=== PATIENT | female | born 1995 | race Hispanic/Latino ===

== ENCOUNTER 2018-02-04 23:21 | Emergency (ER) | payer MEDICAID ==
[2018-02-04 23:21] VITALS: BMI 29.6
[2018-02-05 00:09] LABS: SQUAMOUS EPITHIAL 2 /hpf (0-5); URINE BACTERIA RARE (<OCC); URINE BILIRUBIN NEGATIVE (NEGATIVE); URINE BLOOD NEGATIVE (NEGATIVE); URINE CLARITY Clear (Clear); URINE COLOR Yellow (YELLOW); URINE GLUCOSE (UA) NORMAL (Normal); URINE LEUKOCYTE ESTERASE TRACE Leu/uL (Negative); URINE PROTEIN NEGATIVE (NEGATIVE); URINE UROBILINOGEN NORMAL mg/dL (0.2-1.0)
[2018-02-05 00:29] LABS: ALB/GLOB RATIO 1.2 (1.0-2.1); ALBUMIN 3.5 g/dL (3.5-5.0); ALT/SGPT 17 U/L (9-52); AST/SGOT 13 U/L (14-36); BLOOD UREA NITROGEN 6 mg/dL (7-17); CALCIUM 8.5 mg/dl (8.6-10.4); GFR NON-AFRICAN AMERICAN > 60
[2018-02-05 00:32] LABS: BASO # 0.1 K/uL (0.0-0.2); BASO % 0.6 % (0.0-2.0); EOS # 0.2 K/uL (0.0-0.7); EOS % 2.2 % (0.0-4.0); LYMPH # 2.2 K/uL (1.0-4.3); LYMPH % 25.5 % (20.0-40.0); MEAN CELL VOLUME 85.1 fL (81.0-99.0); MEAN CORPUSCULAR HEMOGLOBIN 30.2 pg (27.0-31.0); MEAN CORPUSCULAR HGB CONC 35.6 g/dL (33.0-37.0); MEAN PLATELET VOLUME 9.2 fL (7.2-11.7); MONO # 0.6 K/uL (0.0-0.8); MONO % 6.8 % (0.0-10.0); NEUT # 5.5 K/uL (1.8-7.0); NEUT % 64.9 % (50.0-75.0); RBC 3.98 Mil/uL (3.80-5.20); RED CELL DISTRIBUTION WIDTH 13.9 % (11.5-14.5); WHITE BLOOD COUNT 8.5 K/uL (4.8-10.8)
--- NOTE | 2018-02-05 00:35 | C.PDOC ---
History Of Present Illness 22 y/o F p/w vaginal bleeding today, spotting mostly. Denies pain. Reports normal nausea and vomiting or . Time Seen by Provider: 02/04/18 23:33 Chief Complaint (Nursing): Female Genitourinary Past Medical History Vital Signs: Last Vital Signs Temp 98.6 F 02/04/18 23:27 Pulse 75 02/04/18 23:27 Resp 20 02/04/18 23:27 BP 116/74 02/04/18 23:27 Pulse Ox 100 02/04/18 23:27 - [facility] Procedures DELIVERY OF PRODUCTS OF CONCEPTION, EXTERNAL APPROACH (04/09/16) DRAINAGE OF AMNIOTIC FL, THERAP FROM POC, VIA OPENING (04/09/16) REPAIR PERINEUM SKIN, EXTERNAL APPROACH (04/09/16) Family History: States: Unknown Family Hx - Social History Hx Alcohol Use: No Hx Substance Use: No - Immunization History Hx Tetanus Toxoid Vaccination: No Hx Influenza Vaccination: No Hx Pneumococcal Vaccination: No Review Of Systems Except As Marked, All Systems Reviewed And Found Negative. Constitutional: Negative for: Fever Respiratory: Negative for: Shortness of Breath Physical Exam - Physical Exam Additional Physical Exam Comments: Constitutional: No acute distress. Head: Normocephalic. Atraumatic. Eyes: PERRL. ENT: Moist mucous membranes. Neck: Supple. Cardiovascular: Regular rate. Radial pulse 2+ bilaterally. Chest: No tenderness. Respiratory: Clear to auscultation bilaterally. GI: Soft. Nontender. Nondistended. Back: No CVA tenderness. Musculoskeletal: No tenderness or swelling of extremities. Skin: No rash. Neurologic: Alert, no focal deficit. ED Course And Treatment - Laboratory Results Result Diagrams: 02/04/18 23:59 02/04/18 23:59 O2 Sat by Pulse Oximetry: 100 Medical Decision Making Medical Decision Making: OB US Results: Findings: Single, live intrauterine gestation. Normal cervical length measuring 3.4 cm. Anterior/fundal placenta. No evidence of placenta previa. Breech presentation. heart rate 152 beats per minute. Estimated gestational age 16 weeks and 5 days. Nonvisualization of the ovaries. Impression: Single, live intrauterine gestation. No abnormality is seen. Limited evaluation of the anatomy. Disposition - Disposition Disposition: HOME/ ROUTINE Disposition Time: 03:10 Condition: STABLE Instructions: Threatened Miscarriage Forms: [facility] (Thai) - Clinical Impression Clinical Impression: Threatened
[2018-02-05 03:29] VITALS: BP 107/57; PULSE 69; RESP 16; TEMP 98.5
[2018-02-05 03:30] VITALS: O2SAT 100
--- NOTE | 2018-02-05 08:43 | US ---
Date of service: 02/05/2018 PROCEDURE: Obstetrical ultrasound examination HISTORY: vag bleed in , assess cervix COMPARISON: Not available TECHNIQUE: Transvaginal FINDINGS: There is a single live intrauterine gestation in breech presentation. The heart rate is 152 beats per minute. A grossly normal quantity of amniotic fluid is visualized. An anterior fundal placenta is identified. There is no evidence of placenta previa. The cervix measures 3.4 cm in length and is closed. biometry yields a gestational age of 16 weeks 5 days. The SAAD by ultrasound is 07/18/2018. anatomy was assessed in a limited fashion at this time.. There was fluid seen distending the stomach and urinary bladder. A three-vessel umbilical cord is identified. The anterior abdominal wall is intact. A 4 chamber heart is demonstrated. No gross abnormality of the spine is identified. There is no evidence of hydronephrosis. IMPRESSION: Single live intrauterine gestation of approximately 16 weeks 5 days. No gross anatomic abnormality. Normal amniotic fluid volume. No previa. Breech presentation. heart rate 152. Cervix long and closed. The preliminary findings for this examination were reported by [facility] at 3 a.m. on 02/05/2018. There is concurrence of this report with the preliminary findings.
== END 2018-02-05 03:18 | disposition home or self-care (01) ==
LOC: C.ER 23:21
DX: O20.0 Threatened abortion (principal); Z3A.16 16 weeks gestation of pregnancy

== ENCOUNTER 2018-05-15 18:36 | Emergency (ER) | payer MEDICAID ==
[2018-05-15 19:06] VITALS: BMI 31.2
[2018-05-15 19:26] LABS: SQUAMOUS EPITHIAL 3 /hpf (0-5); URINE BACTERIA OCC (<OCC); URINE BILIRUBIN NEGATIVE (NEGATIVE); URINE BLOOD NEGATIVE (NEGATIVE); URINE COLOR Yellow (YELLOW); URINE GLUCOSE (UA) NORMAL (Normal); URINE LEUKOCYTE ESTERASE NEG Leu/uL (Negative); URINE PROTEIN NEGATIVE (NEGATIVE); URINE UROBILINOGEN NORMAL mg/dL (0.2-1.0)
[2018-05-15 19:27] LABS: URINE CLARITY Clear (Clear)
--- NOTE | 2018-05-15 21:53 | OBHP ---
Datetime: 05/15/2018 21:25 IP Adm Impression: , intrauterine ; No Active Labor IP Admit Plan: Observation/Evaluation Admit Comment, IP Provider: 22 yo female with an IUP at 30.1 weeks and presented with c/o o f leaking of fluid per vagina after voiding this afternoon. States that she drinks a gallon of water per day and is always in the bathroom. Admits to adequate FM and denies any pains, contractions, VB o r VD. Denies any problems PMHX and PSHx Negative Meds PNV NKDA Social Denies x 3 PE as noted above A/P Negative pool in vagina on SSE. Negative Nitrazine No contractions or pains UA done and negative NST reactive D/W Dr. Youngblood and request pt to be discharge home to f/up in office in 2-3 days or prn. D/C home in S_S condition Pelvic Type - PN: Adequate Extremities - PN: Normal Abdomen - PN: Normal Back - PN: Normal Breast - PN: Not Done Lungs - PN: Normal Heart - PN: Normal Thyroid - PN: Normal Neurologic - PN: Normal HEENT - PN: Normal General - PN: Normal FHR - Baseline A Provider: 150 Membranes, Provider: Intact Contraction Comments Provider: None Gestation - Est Wks by US: 30.1 Pool Provider: Negative Nitrazine Provider: Negative EGA AdmitDate IP: 30.1 IP Chief Complaint: Suspected ruptured membranes; evaluation NICHD Variability Prov Fetus A: Moderate 6-25bpm NICHD Accel Fetus A IP Provider: [id number] FHR Category Provider Fetus A: Category I NICHD Decel Fetus A IP Provider: None Dilatation, Provider: 0 Effacement, Provider: 0 Station, Provider: High Genitourinary Exam: Normal DTRs - PN: Normal
--- NOTE | 2018-05-15 21:56 | OBDCSUM ---
Datetime: 05/15/2018 21:05 Discharged to, Provider: Home Follow up at, Provider: DR YOUNGBLOOD Disch Instr Activity: Normal activity Disch Instr Diet: Regular Discharge Instructions, Provider: Routine instructions given Discharge Diagnosis, Provider: False Labor - Undelivered Discharge Time: 05/15/2018 21:05 Follow up in weeks, Provider: 05/24/2018 Disch Referrals: None Disch Activity Restrictions: No exercising; No lifting; Minimize walking; Minimize stair-climbing; N o sexual activity; Nothing in vagina - [place], tampons, douche Discharge Comment, Provider: 22 yo female with an IUP at 30.1 weeks and presented with c/o of leaking of fluid per vagina after voiding this afternoon. States that she drinks a gallon of water per day and is always in the bathroom. Admits to adequate FM and denies any pains, contractions, VB or VD. Denies any problems PMHX and PSHx Negative Meds PNV NKDA Social Denies x 3 PE as noted above A/P Negative pool in vagina on SSE. Negative Nitrazine No contractions or pains UA done and negative NST reactive D/W Dr. Youngblood and request pt to be discharge home to f/up in office in 2-3 days or prn. D/C home in S_S condition
[2018-05-16 01:28] VITALS: BP 111/61; PULSE 84; RESP 18
== END 2018-05-15 21:15 | disposition home or self-care (01) ==
LOC: C.EROB 18:36
DX: O47.03 False labor before 37 completed weeks of gestation, third trimester (principal); Z3A.30 30 weeks gestation of pregnancy